=== PATIENT | male | born 1950 | race Caucasian/White ===

== ENCOUNTER 2023-08-26 08:50 | Outpatient (AMB) | payer BC, SELFPAY ==
--- NOTE | 2023-08-26 09:00 | MHC.PC.OV ---
Vital Signs 08/26/23 09:11 Height 5 ft 7 in Weight 227 lb BMI 35.5 BP 110/75 Blood Pressure Location Lt brachial Position Sitting Respiration 14 Pulse 94 Pulse Source Pulse Oximeter Temp 97.5 F Temp Source Oral Pulse Oximetry (%) 97 Oxygen Delivery Method Room Air Oxygen Flow Rate 97 Intake Visit Reasons: Est Care DM Intake Note: New patient visit Liquor Commissioner Required: No Allergies No Known Allergies Allergy (Verified 08/26/23 09:01) Medication List - Last Reconciled 08/26/23 by Mora Bueno MD allopurinol 200 mg PO DAILY apixaban (Eliquis) 5 mg PO BID blood sugar diagnostic ([employer] Ultra Test strips) As directed ciprofloxacin-dexamethasone 0.3-0.1 % 4 drps otic (ears) BID 7 days digoxin 250 mcg PO DAILY dulaglutide (Trulicity) mg subcut fenofibrate micronized 134 mg PO DAILY furosemide 20 mg PO BID glipizide ER 10 mg PO BID lisinopril mg PO metoprolol tartrate 100 mg PO BID pioglitazone 15 mg PO DAILY pravastatin 80 mg PO DAILY triamcinolone acetonide 0.1% 1 appl topical BID 14 days Tobacco use date assessed: 08/26/23 Fall risk assessment: No Falls in past year Last assessed Fall Risk: 08/26/23 Dental Screening Dental Screen Date: 08/26/23 Did you have a dental visit in the last 12 months?: No Did you have a dental problem in the last 6 months where you did not have access to dental care?: Yes Was dental information given to patient?: Patient has dentist HPI HPI Comments History of Present Illness Details This is a 73 year old male with a past medical history of type 2 diabetes, hypertension, atrial fibrillation, chf presenting for follow up Type 2 diabetes: Not regularly check BG. On trulicity, actos, glipizide. POC A1C today is 6.8%. Sees ophtho. Chronic LE neuropathy-no interval increase. Is having excessively itchy ears CV: On eliquis 5mg twice daily, lisinopril, pravastatin, metoprolol MSK: OA, gout. On allopurinol PFSH Family History (Updated 08/26/23 @ 09:36 by Yi Lujan CMA) Brother Alcohol abuse Other Substance abuse Social History Housing: Apartment Patient Tobacco Use Status: Former Tobacco user Tobacco use type: Pipe e-Cigarette/Vaping Use: Never Used service: No Current occupational status: employed Current occupation: Water treatment plant Current occupational exposures/hazards: No Cognitive needs: No Hearing needs: No Vision needs: No Questionnaire PHQ-9 Over the last 2 weeks, how often have you been bothered by any of the following problems? 1. Little interest or pleasure in doing things: not at all 2. Feeling down, depressed, or hopeless: not at all 3. Trouble falling or staying asleep, or sleeping too much: not at all 4. Feeling tired or having little energy: not at all 5. Poor appetite or overeating: not at all 6. Feeling bad about yourself - or that you are a failure or have let yourself or your family down: not at all 7. Trouble concentrating on things, such as reading the newspaper or watching television: not at all 8. Moving or speaking so slowly that other people could have noticed. Or the opposite - being so fidgety or restless that you have been moving around a lot more than usual: not at all 9. Thoughts that you would be better off or of hurting yourself in some way: not at all Total score: 0 Depression Screening Interpretation: Negative (noted) Depression Screening Done: Yes 49636 - PHQ-9 Billing: Yes Source: Developed by Drs. Senthil Hardin, Beverly Dennison, Hugo Escobedo and colleagues, with an educational kell from [employer]. AUDIT C Alcohol Use Questionnaire (AUDIT-C) 1. How often do you have a drink containing alcohol?: Never 3. How often do you have six or more drinks on one occasion?: Never Total Score: 0 EDILSON-7 AMB Questionnaire EDILSON-7 Date EDILSON - 7 assessed: 08/26/23 Feeling nervous, anxious, or on edge: 0 = Not at all Not being able to stop or control worryin = Not at all Worrying too much about different things: 0 = Not at all Trouble relaxin = Not at all Being so restless that it is hard to sit still: 0 = Not at all Becoming easily annoyed or irritable: 0 = Not at all Feeling afraid as if something awful might happen: 0 = Not at all Total EDILSON-7 score (0-4 normal; 5-9 mild; 10-14 moderate; 15-21 severe): 0 Source: Developed by Drs. Senthil Hardin, Beveryl Dennison, Hugo Escobedo and colleagues, with an educational kell from [employer]. EDILSON-7 Assessment Billing EDILSON-7 Assessment Tool: EDILSON-7 Assessment 67283 Review of Systems Const Details: ROS CONSTITUTIONAL: Denies weight loss, fever and chills. HEENT: Denies changes in vision and hearing. RESPIRATORY: Denies SOB and cough. CV: Denies palpitations and CP GI: Denies abdominal pain, nausea, vomiting and diarrhea. : Denies dysuria and urinary frequency MSK: Denies myalgia and joint pain. SKIN: Denies rash and pruritus. NEUROLOGICAL: Denies headache and syncope. PSYCHIATRIC: Denies recent changes in mood. Denies anxiety and depression. Physical exam (Primary Care) Vital Signs: Last Vital Signs Temp 97.5 F 08/26/23 09:11 Pulse 94 08/26/23 09:11 Resp 14 08/26/23 09:11 BP 110/75 08/26/23 09:11 Pulse Ox 97 08/26/23 09:11 Oxygen Delivery Method Room Air 08/26/23 09:11 Oxygen Flow Rate 97 08/26/23 09:11 BMI result Body Mass Index 35.5 Tobacco/Smoking Status: Tobacco use Status Tobacco use date assessed 08/26/23 08/26/23 09:10 Patient Tobacco Use Status Former Tobacco user 08/26/23 09:10 Tobacco use type Pipe 08/26/23 09:10 e-Cigarette/Vaping Use Never Used 08/26/23 09:10 Depression Screening Interpretation: Negative (noted) Const Other: PHYSICAL EXAM: GENERAL: Alert and oriented x 3. No acute distress. Well-nourished. EYES: EOMI. Anicteric. HENT: Moist mucous membranes. No scleral icterus. No cervical lymphadenopathy. LUNGS: Clear to auscultation bilaterally. No accessory muscle use. CARDIOVASCULAR: Regular rate and rhythm. No murmur. No JVD. ABDOMEN: Soft, non-tender and non-distended. No palpable masses. EXTREMITIES: No edema. Non-tender.?SKIN: No rashes or lesions. Warm. NEUROLOGIC: No focal neurological deficits. CN II-XII grossly intact PSYCHIATRIC: Cooperative. Appropriate mood and affect Results AMB Hemoglobin A1c AMB Hemoglobin A1c 6.8 % Last Edit by Tiny Alberto CMA on 08/26/23 09:31 Assessment and Plan Assessment & Plan (1) Diabetes: Comment: well controlled on current medication which he will continue Neuropathy is stable. Patient states utd on eye exams Code(s): E11.9 - Type 2 diabetes mellitus without complications Qualifiers: Diabetes mellitus type: type 2 Diabetes mellitus rat exterminator insulin use: without fpc use Diabetes mellitus complication status: with neurologic complications Diabetes mellitus complication detail: with polyneuropathy Qualified Code(s): E11.42 - Type 2 diabetes mellitus with diabetic polyneuropathy (2) Screening for prostate cancer: Code(s): Z12.5 - Encounter for screening for malignant neoplasm of prostate (3) Screening for metabolic disorder: Code(s): Z13.228 - Encounter for screening for other metabolic disorders (4) Atrial fibrillation: Code(s): I48.91 - Unspecified atrial fibrillation Qualifiers: Atrial fibrillation type: paroxysmal Qualified Code(s): I48.0 - Paroxysmal atrial fibrillation (5) Congestive heart failure: Code(s): I50.9 - Heart failure, unspecified Qualifiers: Heart failure type: combined systolic and diastolic Heart failure chronicity: chronic Qualified Code(s): I50.42 - Chronic combined systolic (congestive) and diastolic (congestive) heart failure (6) Hypertension: Code(s): I10 - Essential (primary) hypertension Qualifiers: Hypertension type: primary hypertension Qualified Code(s): I10 - Essential (primary) hypertension Orders: Orders AMB Hemoglobin A1c Today E11.9 - Type 2 diabetes mellitus without complications Comprehensive Met. Panel Today E11.9 - Type 2 diabetes mellitus without complications, Z12.5 - Encounter for screening for malignant neoplasm of prostate, Z13.228 - Encounter for screening for other metabolic disorders Prostate Specific Antigen Today E11.9 - Type 2 diabetes mellitus without complications, Z12.5 - Encounter for screening for malignant neoplasm of prostate, Z13.228 - Encounter for screening for other metabolic disorders Hemoglobin A1c Today E11.9 - Type 2 diabetes mellitus without complications, Z12.5 - Encounter for screening for malignant neoplasm of prostate, Z13.228 - Encounter for screening for other metabolic disorders Lipid Panel Today E11.9 - Type 2 diabetes mellitus without complications, Z12.5 - Encounter for screening for malignant neoplasm of prostate, Z13.228 - Encounter for screening for other metabolic disorders Medications: New digoxin 250 mcg PO DAILY 90 days 90 tabs 3RF glipizide ER 10 mg PO BID 90 days 180 tabs 3RF pravastatin 80 mg PO DAILY 90 days 90 tabs 3RF triamcinolone acetonide 0.1% 1 appl topical BID 14 days 30 grams 0RF ciprofloxacin-dexamethasone 0.3-0.1 % 4 drps otic (ears) BID 7 days 7.5 mL 0RF allopurinol 200 mg (2 x 100 mg) PO DAILY 90 days 180 tabs 3RF apixaban (Eliquis) 5 mg PO BID 90 days 180 tabs 3RF dulaglutide (Trulicity) 3 mg (0.5 mL) subcut QWEEK 12 weeks 6 mL 3RF furosemide 20 mg PO BID 90 days 180 tabs 3RF lisinopril 10 mg PO DAILY 90 days 90 tabs 3RF metoprolol tartrate 100 mg PO BID 90 days 180 tabs 3RF pioglitazone 15 mg PO DAILY 90 tabs 3RF Coding Level of Care Code Est Pt Level 5 (15038) Complex EM visit Add On G2211 Diagnoses Type 2 diabetes mellitus with diabetic polyneuropathy, without long-term current use of insulin E11.42 Diabetes mellitus type: type 2 Diabetes mellitus fpc insulin use: without rat exterminator use Diabetes mellitus complication status: with neurologic complications Diabetes mellitus complication detail: with polyneuropathy Screening for prostate cancer Z12.5 Screening for metabolic disorder Z13.228 Paroxysmal atrial fibrillation I48.0 Atrial fibrillation type: paroxysmal 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
[2023-08-26 09:11] VITALS: BP 110/75; PULSE 94; RESP 14; TEMP 36.4; O2SAT 97; BMI 35.5
== END 2023-08-26 09:54 | disposition home or self-care (01) ==
PROVIDERS: PCP Internal Medicine; Visit Provider Internal Medicine
DX: E11.42 Type 2 diabetes mellitus with diabetic polyneuropathy (principal); I48.0 Paroxysmal atrial fibrillation; I50.42 Chronic combined systolic (congestive) and diastolic (congestive) heart failure; Z12.5 Encounter for screening for malignant neoplasm of prostate; Z13.228 Encounter for screening for other metabolic disorders; I10 Essential (primary) hypertension
CPT/HCPCS: 83036; 99215; G2211

== ENCOUNTER 2023-11-18 08:38 | Outpatient (AMB) | payer BC, SELFPAY ==
--- NOTE | 2023-11-18 08:39 | A.OFFPC_ITS ---
Vital Signs 11/18/23 08:40 Height 5 ft 7 in Weight 226 lb BMI 35.4 BP 110/68 Blood Pressure Location Lt brachial Position Sitting Respiration 12 Pulse 80 Pulse Source Pulse Oximeter Pulse Oximetry (%) 96 Oxygen Delivery Method Room Air Intake Visit Reasons: physical Intake Note: Patient is here for a physical, patient reports he has been unable to get the Trulicity medication due to backorder and would like an alternative as his blood sugar was 304 this morning and yesterday morning was 350. Patient needs medication refills. Patient is accompanied in office by his , Abby. Multi Disciplined Language Analyst Required: No Accompanied by: Spouse Allergies No Known Allergies Allergy (Verified 11/18/23 08:46) Medication List - Last Reconciled 11/18/23 by Mora Bueno MD allopurinol 200 mg (2 x 100 mg) PO DAILY 90 days apixaban (Eliquis) 5 mg PO BID 90 days blood sugar diagnostic ([employer] Ultra Test strips) As directed ciprofloxacin-dexamethasone 0.3-0.1 % 4 drps otic (ears) BID 7 days digoxin 250 mcg PO DAILY 90 days dulaglutide (Trulicity) 3 mg subcut QWEEK 12 weeks dulaglutide (Trulicity) 3 mg (0.5 mL) subcut QWEEK 12 weeks fenofibrate micronized 134 mg PO DAILY furosemide 20 mg PO BID 90 days glipizide ER 10 mg PO BID 90 days lisinopril 10 mg PO DAILY 90 days metoprolol tartrate 100 mg PO BID 90 days pioglitazone 30 mg PO DAILY pravastatin 80 mg PO DAILY 90 days tirzepatide (Mounjaro) 5 mg (0.5 mL) subcut QWEEK triamcinolone acetonide 0.1% 1 appl topical BID 14 days Tobacco use date assessed: 08/26/23 Fall risk assessment: No Falls in past year Last assessed Fall Risk: 11/18/23 Dental Screening Dental Screen Date: 08/26/23 HPI HPI Comments History of Present Illness Details This is a 73 year old male with a past medical history of type 2 diabetes, hypertension, atrial fibrillation, chf presenting for annual exam Type 2 diabetes: Not regularly checking BG-has had increased readings 200s, even 300s in the setting of being out of trulicity x months. On trulicity, actos, glipizide. Saw Dr Barrios needs new eye doctor. Chronic LE neuropathy-no interval increase. CV: On eliquis 5mg twice daily, lisinopril, pravastatin, metoprolol MSK: OA, gout. On allopurinol ROS see HPI PHYSICAL EXAM: GENERAL: Alert and oriented x 3. NAD EYES: EOMI. Anicteric. HENT: Moist mucous membranes. No scleral icterus. No cervical lymphadenopathy. LUNGS: Clear to auscultation bilaterally. CARDIOVASCULAR: Regular rate and rhythm. No murmur. No JVD. ABDOMEN: Soft, non-tender +bs EXTREMITIES: No edema. Non-tender. SKIN: No rashes or lesions. Warm. NEUROLOGIC: No focal neurological deficits. CN II-XII grossly intact PSYCHIATRIC: Cooperative. Appropriate mood and affect [facility] Family History Brother Alcohol abuse Other Substance abuse Social History Housing: Apartment Patient Tobacco Use Status: Former Tobacco user Tobacco use type: Pipe e-Cigarette/Vaping Use: Never Used service: No Current occupational status: employed Current occupation: Water treatment plant Current occupational exposures/hazards: No Cognitive needs: No Hearing needs: No Vision needs: No Questionnaire EDILSON-7 AMB Questionnaire EDILSON-7 Date EDILSON - 7 assessed: 08/26/23 Source: Developed by Drs. Senthil Hardin, Beverly Dennison, Hugo Escobedo and colleagues, with an educational kell from [employer]. Physical exam (Primary Care) Vital Signs: Last Vital Signs Pulse 80 11/18/23 08:40 Resp 12 11/18/23 08:40 BP 110/68 11/18/23 08:40 Pulse Ox 96 11/18/23 08:40 Oxygen Delivery Method Room Air 11/18/23 08:40 BMI result Body Mass Index 35.4 Tobacco/Smoking Status: Tobacco use Status Tobacco use date assessed 08/26/23 11/18/23 08:48 Patient Tobacco Use Status Former Tobacco user 11/18/23 08:48 Tobacco use type Pipe 11/18/23 08:48 e-Cigarette/Vaping Use Never Used 11/18/23 08:48 Assessment and Plan Assessment & Plan (1) Diabetes: Code(s): E11.9 - Type 2 diabetes mellitus without complications Qualifiers: Diabetes mellitus complication detail: with polyneuropathy Diabetes mellitus complication status: with neurologic complications Diabetes mellitus buttermaker insulin use: without prison use Diabetes mellitus type: type 2 Qualified Code(s): E11.42 - Type 2 diabetes mellitus with diabetic polyneuropathy Plan: Increase actos to 30mg daily. mounjaro sent. if not approved will try to get trulicity. (2) Atrial fibrillation: Code(s): I48.91 - Unspecified atrial fibrillation Qualifiers: Atrial fibrillation type: paroxysmal Qualified Code(s): I48.0 - Paroxysmal atrial fibrillation Plan: stable. on AC (3) Congestive heart failure: Code(s): I50.9 - Heart failure, unspecified Qualifiers: Heart failure chronicity: chronic Heart failure type: combined systolic and diastolic Qualified Code(s): I50.42 - Chronic combined systolic (congestive) and diastolic (congestive) heart failure (4) Physical exam: Code(s): Z00.00 - Encounter for general adult medical examination without abnormal findings Plan Preventive measures for age discussed. Medications: New tirzepatide (Mounjaro) 5 mg (0.5 mL) subcut QWEEK 6 mL 3RF pioglitazone 30 mg PO DAILY 90 tabs 3RF pioglitazone 30 mg PO DAILY 90 tabs 3RF tirzepatide (Mounjaro) 5 mg (0.5 mL) subcut QWEEK 6 mL 3RF Refilled furosemide 20 mg PO BID 90 days 180 tabs 3RF pravastatin 80 mg PO DAILY 90 days 90 tabs 3RF apixaban (Eliquis) 5 mg PO BID 90 days 180 tabs 3RF digoxin 250 mcg PO DAILY 90 days 90 tabs 3RF fenofibrate micronized 134 mg PO DAILY 90 caps 1RF furosemide 20 mg PO BID 90 days 180 tabs 3RF metoprolol tartrate 100 mg PO BID 90 days 180 tabs 3RF dulaglutide (Trulicity) 3 mg (0.5 mL) subcut QWEEK 12 weeks 6 mL 3RF lisinopril 10 mg PO DAILY 90 days 90 tabs 3RF glipizide ER 10 mg PO BID 90 days 180 tabs 3RF allopurinol 200 mg (2 x 100 mg) PO DAILY 90 days 180 tabs 3RF Discontinued pioglitazone Discontinued Reason: Duplicate 15 mg PO DAILY 90 tabs 3RF Coding Level of Care Code Est Pt Prev Care >65y(84688) Diagnoses Type 2 diabetes mellitus with diabetic polyneuropathy, without long-term current use of insulin E11.42 Diabetes mellitus complication detail: with polyneuropathy Diabetes mellitus complication status: with neurologic complications Diabetes mellitus buttermaker insulin use: without prison use Diabetes mellitus type: type 2 Paroxysmal atrial fibrillation I48.0 Atrial fibrillation type: paroxysmal 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 Heart failure chronicity: chronic Heart failure type: combined systolic and diastolic Physical exam Z00.00
[2023-11-18 08:40] VITALS: BP 110/68; PULSE 80; RESP 12; O2SAT 96; BMI 35.4
== END 2023-11-18 09:18 | disposition home or self-care (01) ==
PROVIDERS: PCP Internal Medicine; Visit Provider Internal Medicine
DX: E11.42 Type 2 diabetes mellitus with diabetic polyneuropathy (principal); I48.0 Paroxysmal atrial fibrillation; I50.42 Chronic combined systolic (congestive) and diastolic (congestive) heart failure; Z00.00 Encounter for general adult medical examination without abnormal findings
CPT/HCPCS: 99397

== ENCOUNTER 2023-11-18 09:31 | Outpatient (REF) | payer BC, SELFPAY ==
[2023-11-18 11:43] LABS: Estimated Average Glucose 186 mg/dL; Hemoglobin A1c % 8.1 % (<6.0)
[2023-11-18 12:17] LABS: Prostate Specific Antigen 1.31 ng/mL (<0.05-4.0)
[2023-11-18 12:55] LABS: Alanine Aminotransferase 18 U/L (0-40); Alkaline Phosphatase 52 U/L (39-117); Anion Gap 15 (12-20); Aspartate Amino Transferase 19 U/L (5-37); Bilirubin Total 0.6 mg/dL (0.0-1.0); Blood Urea Nitrogen 33 mg/dL (9-16); Calcium 8.7 mg/dL (8.4-10.2); Carbon Dioxide 25 mmol/L (22-29); Chloride 98 mmol/L (96-108); Cholesterol 201 mg/dL (<200); Estimated Glomerular Filt Rate > 60; Glucose Random 395 mg/dL (60-115); HDL Cholesterol 26 mg/dL (>40); Potassium 4.1 mmol/L (3.3-5.1); Sodium 134 mmol/L (135-145); Total Protein 7.7 g/dL (6.5-8.0); Triglycerides 691 mg/dL (<150)
== END 2023-11-18 09:32 | disposition home or self-care (01) ==
LOC: HO.WFDLDS 09:31
PROVIDERS: Visit Provider Internal Medicine
DX: E11.9 Type 2 diabetes mellitus without complications (principal); Z12.5 Encounter for screening for malignant neoplasm of prostate; Z13.228 Encounter for screening for other metabolic disorders
CPT/HCPCS: 36415; 80053; 80061; 83036; 84153

== ENCOUNTER 2024-02-07 10:20 | Outpatient (AMB) | payer BC, SELFPAY ==
--- NOTE | 2024-02-07 10:28 | MHC.PC.OV ---
Vital Signs 02/07/24 10:31 Height 5 ft 7 in Weight 228 lb 2 oz BMI 35.7 BP 108/70 Blood Pressure Location Rt brachial Position Sitting Pulse 85 Pulse Source Pulse Oximeter Pulse Oximetry (%) 97 Oxygen Delivery Method Room Air Intake Visit Reasons: Pre-op Eye Surgery 02/09 Intake Note: Cataract surgery with Dr Barrios. Virtual Classroom Manager Required: No Allergies No Known Allergies Allergy (Verified 02/07/24 10:28) Medication List - Last Reconciled 02/07/24 by Mora Bueno MD allopurinol 200 mg (2 x 100 mg) PO DAILY 90 days apixaban (Eliquis) 5 mg PO BID 90 days blood sugar diagnostic ([employer] Ultra Test strips) As directed digoxin 250 mcg PO DAILY 90 days dulaglutide (Trulicity) 3 mg (0.5 mL) subcut QWEEK 12 weeks fenofibrate micronized 134 mg PO DAILY furosemide 20 mg PO BID 90 days glipizide ER 10 mg PO BID 90 days lisinopril 5 mg PO DAILY metoprolol tartrate 100 mg PO BID 90 days pioglitazone 30 mg PO DAILY pravastatin 80 mg PO DAILY 90 days Tobacco use date assessed: 08/26/23 Dental Screening Dental Screen Date: 08/26/23 HPI HPI Comments History of Present Illness Details This is a 73 year old male with a past medical history of type 2 diabetes, hypertension, atrial fibrillation, chf presenting preoperative exam. He is scheduled for bilateral cataract surgeries this month Type 2 diabetes: Blood glucose has improved to 200s. A few months ago was having consistent trouble getting trulicity. On trulicity, actos, glipizide. Last A1C was 8.1%. Chronic LE neuropathy-no interval increase. CV: On eliquis 5mg twice daily, lisinopril, pravastatin, metoprolol. MSK: OA, gout. On allopurinol He has no chest pain No exertional dyspnea. No shortness of breath at rest. Able to climb stairs, walk 1/2 mile no issues No issues with anesthesia in the past ROS see HPI PHYSICAL EXAM: GENERAL: Alert and oriented x 3. NAD EYES: EOMI. Anicteric. HENT: Moist mucous membranes. No scleral icterus. No cervical lymphadenopathy. LUNGS: Clear to auscultation bilaterally. CARDIOVASCULAR: Regular rate and rhythm. No murmur. No JVD. ABDOMEN: Soft, non-tender +bs EXTREMITIES: No edema. Non-tender. SKIN: No rashes or lesions. Warm. NEUROLOGIC: No focal neurological deficits. CN II-XII grossly intact PSYCHIATRIC: Cooperative. Appropriate mood and affect [facility] Family History Brother Alcohol abuse Other Substance abuse Social History Housing: Apartment Patient Tobacco Use Status: Former Tobacco user Tobacco use type: Pipe e-Cigarette/Vaping Use: Never Used service: No Current occupational status: employed Current occupation: Water treatment plant Current occupational exposures/hazards: No Cognitive needs: No Hearing needs: No Vision needs: No Questionnaire Thrive Questionnaire Date Thrive assessed: 02/04/24 I am a: Patient What is your living situation today?: I have a steady place to live Within the past 12 months, did the food you bought not last and you didn't have the money to get more?: Never true Within the past 12 months, did you worry whether your food would run out before you got money to buy more?: Never true Do you have trouble paying for medicines?: No Do you have trouble getting transportation to medical appointments?: No Do you have trouble paying your heating and electricity bill?: No Do you have trouble taking care of your child, family member or friend?: No Do you have trouble with day-to-day activities such as bathing, preparing meals, shopping, managing finances, etc.?: No Are you currently unemployed and looking for a job?: No Are you interested in more education?: No Please select the resources that you would like help with: None Currently or been in a relationship where the following occur: No concerns reported THRIVE Score: 0 AUDIT C Alcohol Use Questionnaire (AUDIT-C) 1. How often do you have a drink containing alcohol?: Never Total Score: 0 EDILSON-7 AMB Questionnaire EDILSON-7 Date EDILSON - 7 assessed: 08/26/23 Feeling nervous, anxious, or on edge: 0 = Not at all Not being able to stop or control worryin = Not at all Worrying too much about different things: 0 = Not at all Trouble relaxin = Not at all Being so restless that it is hard to sit still: 0 = Not at all Becoming easily annoyed or irritable: 3 = Nearly every day Feeling afraid as if something awful might happen: 0 = Not at all Total EDILSON-7 score (0-4 normal; 5-9 mild; 10-14 moderate; 15-21 severe): 3 Source: Developed by Drs. Senthil Hardin, Beverly Dennison, Hugo Escobedo and colleagues, with an educational kell from [employer]. Physical exam (Primary Care) Vital Signs: Last Vital Signs Pulse 85 02/07/24 10:31 BP 108/70 02/07/24 10:31 Pulse Ox 97 02/07/24 10:31 Oxygen Delivery Method Room Air 02/07/24 10:31 BMI result Body Mass Index 35.7 Tobacco/Smoking Status: Tobacco use Status Tobacco use date assessed 08/26/23 02/07/24 10:35 Patient Tobacco Use Status Former Tobacco user 02/07/24 10:35 Tobacco use type Pipe 02/07/24 10:35 e-Cigarette/Vaping Use Never Used 02/07/24 10:35 Thrive Assessment: Date of Thrive Assessment Date Thrive assessed 02/04/24 02/07/24 10:35 Currently or been in a relationship where the following occur: No concerns reported Coding Level of Care Code Est Pt Level 5 (06596) Diagnoses Preoperative cardiovascular examination Z01.810 Type 2 diabetes mellitus with diabetic polyneuropathy, without long-term current use of insulin E11.42 Diabetes mellitus type: type 2 Diabetes mellitus retirement insulin use: without retirement use Diabetes mellitus complication status: with neurologic complications Diabetes mellitus complication detail: with polyneuropathy Time Spent (min) 42 Assessment & Plan Assessment & Plan (1) Preoperative cardiovascular examination: Code(s): Z01.810 - Encounter for preprocedural cardiovascular examination Category: Medical Plan: Patient is higher risk patient for low risk surgery He is euvolemic. His chronic conditions are adequately controlled. EKG reviewed. METS>/=4 He can proceed with planned procedures without further cardiac testing Take all medicaitons as prescribed (2) Diabetes: Code(s): E11.9 - Type 2 diabetes mellitus without complications Category: Medical Qualifiers: Diabetes mellitus type: type 2 Diabetes mellitus long filler cigar roller machine insulin use: without long filler cigar roller machine use Diabetes mellitus complication status: with neurologic complications Diabetes mellitus complication detail: with polyneuropathy Qualified Code(s): E11.42 - Type 2 diabetes mellitus with diabetic polyneuropathy Plan: Increase trulicity to 4.5 weekly. supoptimal control Orders: Orders Hemoglobin A1c Today E11.42 - Type 2 diabetes mellitus with diabetic polyneuropathy Medications: New Trulicity (dulaglutide) 4.5 mg (0.5 mL) subcut QWEEK 6 mL 3RF NS Changed From lisinopril 10 mg PO DAILY 90 days 90 tabs 3RF To lisinopril 5 mg PO DAILY Discontinued dulaglutide (Trulicity) Discontinued Reason: Doctor's Order 3 mg (0.5 mL) subcut QWEEK 12 weeks 6 mL 3RF
[2024-02-07 10:31] VITALS: BP 108/70; PULSE 85; O2SAT 97; BMI 35.7
== END 2024-02-07 11:17 | disposition home or self-care (01) ==
PROVIDERS: PCP Internal Medicine; Visit Provider Internal Medicine
DX: Z01.818 Encounter for other preprocedural examination (principal); E11.42 Type 2 diabetes mellitus with diabetic polyneuropathy

== ENCOUNTER → 2024-02-07 10:20 | Outpatient (BNVA) | payer BC, SELFPAY | PROVIDERS: PCP Internal Medicine; Visit Provider Internal Medicine ==

== ENCOUNTER 2024-03-02 13:16 | Outpatient (REF) | payer BC, SELFPAY ==
[2024-03-02 14:51] LABS: Estimated Average Glucose 163 mg/dL; Hemoglobin A1C 196.2656 umol/L; Hemoglobin A1c % 7.3 % (<6.0); Total Hemoglobin (HGBA1C) 3477.7083 umol/L
== END 2024-03-02 13:17 | disposition home or self-care (01) ==
LOC: HO.WFDLDS 13:16
PROVIDERS: Visit Provider Internal Medicine
DX: E11.42 Type 2 diabetes mellitus with diabetic polyneuropathy (principal)
CPT/HCPCS: 36415; 83036

== ENCOUNTER 2024-03-06 10:18 | Outpatient (AMB) | payer BC, SELFPAY ==
--- NOTE | 2024-03-06 10:32 | A.OFFPC_ITS ---
Vital Signs 03/06/24 10:36 Height 5 ft 7 in Weight 230 lb 6 oz BMI 36.1 BP 124/64 Blood Pressure Location Lt brachial Position Sitting Pulse 86 Pulse Source Pulse Oximeter Pulse Oximetry (%) 96 Oxygen Delivery Method Room Air Intake Visit Reasons: 3.5 week follow up Intake Note: Follow up Allergies No Known Allergies Allergy (Verified 03/06/24 10:34) Tobacco use date assessed: 08/26/23 Dental Screening Dental Screen Date: 08/26/23 HPI HPI Comments History of Present Illness Details This is a 73 year old male with a past medical history of type 2 diabetes, hypertension, atrial fibrillation, chf presenting for follow up Type 2 diabetes: Trulicity was increased to 4.5mg 1 month ago. On trulicity, actos, glipizide. A1C is improved 7.3% from 8.1% Chronic LE neuropathy-no interval increase. CV: On eliquis 5mg twice daily, lisinopril, pravastatin, metoprolol. MSK: OA, gout. On allopurinol Colonoscopy at [place] ROS see HPI PHYSICAL EXAM: GENERAL: Alert and oriented x 3. NAD EYES: EOMI. Anicteric. HENT: Moist mucous membranes. No scleral icterus. No cervical lymphadenopathy. LUNGS: Clear to auscultation bilaterally. CARDIOVASCULAR: Regular rate and rhythm. No murmur. No JVD. ABDOMEN: Soft, non-tender +bs EXTREMITIES: No edema. Non-tender. SKIN: No rashes or lesions. Warm. NEUROLOGIC: No focal neurological deficits. CN II-XII grossly intact PSYCHIATRIC: Cooperative. Appropriate mood and affect [facility] Family History Brother Alcohol abuse Other Substance abuse Social History Housing: Apartment Patient Tobacco Use Status: Former Tobacco user Tobacco use type: Pipe e-Cigarette/Vaping Use: Never Used service: No Current occupational status: employed Current occupation: [employer] Current occupational exposures/hazards: No Cognitive needs: No Hearing needs: No Vision needs: No Questionnaire PHQ-9 Over the last 2 weeks, how often have you been bothered by any of the following problems? 1. Little interest or pleasure in doing things: not at all 2. Feeling down, depressed, or hopeless: not at all 3. Trouble falling or staying asleep, or sleeping too much: not at all 4. Feeling tired or having little energy: nearly every day 5. Poor appetite or overeating: not at all 6. Feeling bad about yourself - or that you are a failure or have let yourself or your family down: not at all 7. Trouble concentrating on things, such as reading the newspaper or watching television: not at all 8. Moving or speaking so slowly that other people could have noticed. Or the opposite - being so fidgety or restless that you have been moving around a lot more than usual: not at all 9. Thoughts that you would be better off or of hurting yourself in some way: not at all Total score: 3 Depression Screening Interpretation: Negative Depression Screening Done: No 51082 - PHQ-9 Billing: Yes Source: Developed by Drs. Senthil Hardin, Beverly Dennison, Hugo Escobedo and colleagues, with an educational kell from [employer]. Thrive Questionnaire Date Thrive assessed: 02/04/24 I am a: Patient What is your living situation today?: I have a steady place to live Within the past 12 months, did the food you bought not last and you didn't have the money to get more?: Never true Within the past 12 months, did you worry whether your food would run out before you got money to buy more?: Never true Do you have trouble paying for medicines?: No Do you have trouble getting transportation to medical appointments?: No Do you have trouble paying your heating and electricity bill?: No Do you have trouble taking care of your child, family member or friend?: No Do you have trouble with day-to-day activities such as bathing, preparing meals, shopping, managing finances, etc.?: No Are you currently unemployed and looking for a job?: No Are you interested in more education?: No Please select the resources that you would like help with: None Currently or been in a relationship where the following occur: No concerns reported THRIVE Score: 0 EDILSON-7 AMB Questionnaire EDILSON-7 Date EDILSON - 7 assessed: 08/26/23 Source: Developed by Drs. Senthil Hardin, Beverly Dennison, Hugo Escobedo and colleagues, with an educational kell from [employer]. Physical exam (Primary Care) Vital Signs: Last Vital Signs Pulse 86 03/06/24 10:36 BP 124/64 03/06/24 10:36 Pulse Ox 96 03/06/24 10:36 Oxygen Delivery Method Room Air 03/06/24 10:36 BMI result Body Mass Index 36.1 Tobacco/Smoking Status: Tobacco use Status Tobacco use date assessed 08/26/23 03/06/24 10:34 Patient Tobacco Use Status Former Tobacco user 03/06/24 10:34 Tobacco use type Pipe 03/06/24 10:34 e-Cigarette/Vaping Use Never Used 03/06/24 10:34 PHQ-9: PHQ-9 Score PHQ-9: Total score 3 03/06/24 10:41 Depression Screening Interpretation: Negative Thrive Assessment: Date of Thrive Assessment Date Thrive assessed 02/04/24 03/06/24 10:34 Currently or been in a relationship where the following occur: No concerns reported Coding Level of Care Code Est Pt Level 4 (84532) Diagnoses Type 2 diabetes mellitus with diabetic polyneuropathy, without long-term current use of insulin E11.42 Diabetes mellitus complication detail: with polyneuropathy Diabetes mellitus complication status: with neurologic complications Diabetes mellitus terminal worker insulin use: without terminal worker use Diabetes mellitus type: type 2 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 Heart failure chronicity: chronic Heart failure type: combined systolic and diastolic Paroxysmal atrial fibrillation I48.0 Atrial fibrillation type: paroxysmal Assessment & Plan Assessment & Plan (1) Diabetes: Code(s): E11.9 - Type 2 diabetes mellitus without complications Category: Medical Qualifiers: Diabetes mellitus complication detail: with polyneuropathy Diabetes mellitus complication status: with neurologic complications Diabetes mellitus usp insulin use: without terminal worker use Diabetes mellitus type: type 2 Qualified Code(s): E11.42 - Type 2 diabetes mellitus with diabetic polyneuropathy Plan: Improved control. A1C is likely reflecting from less controlled Dec/Jan. Will wait until next A1C to add/change medications prn (2) Congestive heart failure: Code(s): I50.9 - Heart failure, unspecified Category: Medical Qualifiers: Heart failure chronicity: chronic Heart failure type: combined systolic and diastolic Qualified Code(s): I50.42 - Chronic combined systolic (congestive) and diastolic (congestive) heart failure Plan: without exacerbation. continue cardiology follow up (3) Atrial fibrillation: Code(s): I48.91 - Unspecified atrial fibrillation Category: Medical Qualifiers: Atrial fibrillation type: paroxysmal Qualified Code(s): I48.0 - Paroxysmal atrial fibrillation Plan: On AC. rate controlled Orders: Orders Microalbumin, Random (w Creat) 3 Months E11.42 - Type 2 diabetes mellitus with diabetic polyneuropathy, I48.0 - Paroxysmal atrial fibrillation, I50.42 - Chronic combined systolic (congestive) and diastolic (congestive) heart failure, Z13.228 - Encounter for screening for other metabolic disorders Hemoglobin A1c 3 Months E11.42 - Type 2 diabetes mellitus with diabetic polyneuropathy, I48.0 - Paroxysmal atrial fibrillation, I50.42 - Chronic combined systolic (congestive) and diastolic (congestive) heart failure, Z13.228 - Encounter for screening for other metabolic disorders Lipid Panel 3 Months E11.42 - Type 2 diabetes mellitus with diabetic polyneuropathy, I48.0 - Paroxysmal atrial fibrillation, I50.42 - Chronic combined systolic (congestive) and diastolic (congestive) heart failure, Z13.228 - Encounter for screening for other metabolic disorders Comprehensive Met. Panel 3 Months E11.42 - Type 2 diabetes mellitus with diabetic polyneuropathy, I48.0 - Paroxysmal atrial fibrillation, I50.42 - Chronic combined systolic (congestive) and diastolic (congestive) heart failure, Z13.228 - Encounter for screening for other metabolic disorders
[2024-03-06 10:36] VITALS: BP 124/64; PULSE 86; O2SAT 96; BMI 36.1
== END 2024-03-06 11:00 | disposition home or self-care (01) ==
LOC: HO.HMCFM 10:19
PROVIDERS: PCP Internal Medicine; Visit Provider Internal Medicine
DX: E11.42 Type 2 diabetes mellitus with diabetic polyneuropathy (principal); I50.42 Chronic combined systolic (congestive) and diastolic (congestive) heart failure; I48.0 Paroxysmal atrial fibrillation

== ENCOUNTER → 2024-03-06 10:18 | Outpatient (BNVA) | payer BC, SELFPAY | PROVIDERS: PCP Internal Medicine; Visit Provider Internal Medicine ==

== ENCOUNTER 2024-11-10 14:31 | Outpatient (AMB) | payer BC, SELFPAY ==
--- NOTE | 2024-11-10 14:40 | A.OFFPC_ITS ---
Vital Signs 11/10/24 14:41 Height 5 ft 7 in Weight 235 lb 6 oz BMI 36.9 BP 118/64 Blood Pressure Location Rt brachial Position Sitting Respiration 14 Pulse 114 H Pulse Source Pulse Oximeter Pulse Oximetry (%) 94 Oxygen Delivery Method Room Air Intake Visit Reasons: Diabetes Intake Note: Diabetes follow up Salary And Wage Administrator Required: No Allergies No Known Allergies Allergy (Verified 11/10/24 14:41) Tobacco use date assessed: 11/10/24 Fall risk assessment: 2 + Falls in past year Last assessed Fall Risk: 11/10/24 Dental Screening Dental Screen Date: 11/10/24 Did you have a dental visit in the last 12 months?: No Did you have a dental problem in the last 6 months where you did not have access to dental care?: No Was dental information given to patient?: Patient has dentist HPI HPI Comments History of Present Illness Details This is a 74 year old male with a past medical history of type 2 diabetes, hypertension, atrial fibrillation, chf presenting for follow up Type 2 diabetes: On trulicity 4.5, actos, glipizide. A1C is 6.5% improved 7.3% from 8.1% Chronic LE neuropathy-no interval increase. Patient has been out of the trulicity d/t needing a new prior auth. He has gained weight and recent glucose has increased to fasting >150 CV: On eliquis 5mg twice daily, lisinopril, pravastatin, metoprolol, furosemide. Follows with Dr Oetro. Has been having more frequent LE swelling over the summer. Not watching salt intake. Thinks cardiac follow up, echo overdue. Denies increased shortness of breath MSK: OA, gout. On allopurinol Colonoscopy at [place] ROS see HPI PHYSICAL EXAM: GENERAL: Alert and oriented x 3. NAD EYES: EOMI. Anicteric. HENT: Moist mucous membranes. No scleral icterus. No cervical lymphadenopathy. LUNGS: Clear to auscultation bilaterally. CARDIOVASCULAR: Irregular. No JVD. ABDOMEN: Soft, non-tender +bs EXTREMITIES: Trace bilateral edema. 1+PT SKIN: No rashes or lesions. Warm. NEUROLOGIC: No focal neurological deficits. CN II-XII grossly intact PSYCHIATRIC: Cooperative. Appropriate mood and affect [facility] Family History Brother Alcohol abuse Other Substance abuse Social History Housing: Apartment Patient Tobacco Use Status: Former Tobacco user Tobacco use type: Pipe e-Cigarette/Vaping Use: Never Used service: No Current occupational status: employed Current occupation: [employer] Current occupational exposures/hazards: No Cognitive needs: No Hearing needs: No Vision needs: No Questionnaire Thrive Questionnaire Date Thrive assessed: 11/07/24 I am a: Patient What is your living situation today?: I have a steady place to live Within the past 12 months, did the food you bought not last and you didn't have the money to get more?: Never true Within the past 12 months, did you worry whether your food would run out before you got money to buy more?: Never true Do you have trouble paying for medicines?: No Do you have trouble getting transportation to medical appointments?: No Do you have trouble paying your heating and electricity bill?: No Do you have trouble taking care of your child, family member or friend?: No Do you have trouble with day-to-day activities such as bathing, preparing meals, shopping, managing finances, etc.?: No Are you currently unemployed and looking for a job?: No Are you interested in more education?: No Please select the resources that you would like help with: None Currently or been in a relationship where the following occur: No concerns reported THRIVE Score: 0 AUDIT C Alcohol Use Questionnaire (AUDIT-C) 1. How often do you have a drink containing alcohol?: Never Total Score: 0 EDILSON-7 AMB Questionnaire EDILSON-7 Date EDILSON - 7 assessed: 08/26/23 Feeling nervous, anxious, or on edge: 0 = Not at all Not being able to stop or control worryin = Not at all Worrying too much about different things: 0 = Not at all Being so restless that it is hard to sit still: 0 = Not at all Becoming easily annoyed or irritable: 0 = Not at all Feeling afraid as if something awful might happen: 0 = Not at all Source: Developed by Drs. Senthil Hardin, Beverly Dennison, Hugo Escobedo and colleagues, with an educational kell from [employer]. Physical exam (Primary Care) Vital Signs: Last Vital Signs Pulse 114 H 11/10/24 14:41 Resp 14 11/10/24 14:41 BP 118/64 11/10/24 14:41 Pulse Ox 94 11/10/24 14:41 Oxygen Delivery Method Room Air 11/10/24 14:41 BMI result Body Mass Index 36.9 Tobacco/Smoking Status: Tobacco use Status Tobacco use date assessed 11/10/24 11/10/24 14:46 Patient Tobacco Use Status Former Tobacco user 11/10/24 14:46 Tobacco use type Pipe 11/10/24 14:46 e-Cigarette/Vaping Use Never Used 11/10/24 14:46 Thrive Assessment: Date of Thrive Assessment Date Thrive assessed 11/07/24 11/10/24 14:46 Currently or been in a relationship where the following occur: No concerns reported Coding Level of Care Code Est Pt Level 4 (54480) Complex EM visit Add On G2211 Diagnoses Primary hypertension I10 Hypertension type: primary hypertension 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 Heart failure chronicity: chronic Heart failure type: combined systolic and diastolic Paroxysmal atrial fibrillation I48.0 Atrial fibrillation type: paroxysmal Assessment & Plan Assessment & Plan (1) Hypertension: Code(s): I10 - Essential (primary) hypertension Category: Medical Qualifiers: Hypertension type: primary hypertension Qualified Code(s): I10 - Essential (primary) hypertension (2) Congestive heart failure: Code(s): I50.9 - Heart failure, unspecified Category: Medical Qualifiers: Heart failure chronicity: chronic Heart failure type: combined systolic and diastolic Qualified Code(s): I50.42 - Chronic combined systolic (congestive) and diastolic (congestive) heart failure (3) Atrial fibrillation: Code(s): I48.91 - Unspecified atrial fibrillation Category: Medical Qualifiers: Atrial fibrillation type: paroxysmal Qualified Code(s): I48.0 - Paroxysmal atrial fibrillation Plan DM-A1C at goal. Some increased recent glucose while out of [facility]. Has gained weight LE swelling. Increase furosemide prn for 1-2 days with swelling. Needs to follow up with cardiology. Weight gain-would like to switch to mounjaro if covered from [facility]. Lifestyle modification for efforts toward weight loss CHF-breathing is stable. Increased intermittent LE swelling. Orders: Referrals Cardiology Referral I50.42 - Chronic combined systolic (congestive) and diastolic (congestive) heart failure Medications: New Mounjaro (tirzepatide) will switch from 4.5 trulicity 10 mg (0.5 mL) subcut QWEEK 6 mL 3RF NS E11.42 - Type 2 diabetes mellitus with diabetic polyneuropathy, I50.42 - Chronic combined systolic (congestive) and diastolic (congestive) heart failure Refilled digoxin 250 mcg PO DAILY 90 tabs 3RF 90 days On Hold Trulicity (dulaglutide) Hold Comment: Doctor's Order 4.5 mg (0.5 mL) subcut QWEEK 6 mL 3RF NS
[2024-11-10 14:41] VITALS: BP 118/64; PULSE 114; RESP 14; O2SAT 94; BMI 36.9
== END 2024-11-10 15:26 | disposition home or self-care (01) ==
LOC: HO.HMCFM 14:31
PROVIDERS: PCP Internal Medicine; Visit Provider Internal Medicine
DX: I10 Essential (primary) hypertension (principal); I50.42 Chronic combined systolic (congestive) and diastolic (congestive) heart failure; I48.0 Paroxysmal atrial fibrillation